=== PATIENT | female | born 1970 | race Caucasian/White ===

== ENCOUNTER 2018-02-15 02:46 | Inpatient (IN) | payer OTHER ==
[2018-02-15 04:02] LABS: ADD MAN DIFF? NO
[2018-02-15] MEDS: SODIUM CHLORIDE 0.9% 1L BAG IV* (04:06)
[2018-02-15 04:16] LABS: WHITE BLOOD COUNT 14.7 10^3/ul (4.8-10.8)
[2018-02-15 04:16] LABS: BASOPHILS % 0.2 % (0.0-2.0); HEMATOCRIT 46.1 % (37.0-47.0); HEMOGLOBIN 15.5 g/dl (12.0-16.0); LYMPHOCYTES # 2.2 10^3/ul (0.8-2.9); MEAN CORPUSCULAR HEMOGLOBIN 28.8 pg (29.0-33.0); MEAN CORPUSCULAR HGB CONC 33.6 g/dl (32.0-37.0); MEAN CORPUSCULAR VOLUME 85.5 fl (82.0-101.0); MEAN PLATELET VOLUME 9.7 fl (7.4-10.4); MONOCYTE # 0.9 10^3/ul (0.3-0.9); MONOCYTES % 5.9 % (0.0-11.0); NEUTROPHIL # 11.5 10^3/ul (1.6-7.5); NEUTROPHILS % 78.4 % (39.0-77.0); PLATELET COUNT 232 10^3/UL (140-415); RED BLOOD COUNT 5.39 10^6/ul (4.20-5.40); RED CELL DISTRIBUTION WIDTH 13.2 % (11.5-14.5)
[2018-02-15 04:32] LABS: ADD UMIC YES; UR ASCORBIC ACID NEGATIVE (NEGATIVE); UR BACTERIA FEW /HPF (NONE SEEN); UR BILIRUBIN (Dip) NEGATIVE (NEGATIVE); UR BLOOD (Dip) 2+ mg/dL (NEGATIVE); UR CLARITY SLIGHTLY CLOUDY (CLEAR); UR COLOR YELLOW (YELLOW); UR GLUCOSE (Dip) NEGATIVE (NEGATIVE); UR KETONES (Dip) 1+ mg/dL (NEGATIVE); UR LEUKOCYTE ESTERASE (Dip) TRACE Leu/ul (NEGATIVE); UR MUCUS FEW /HPF (NONE SEEN); UR NITRITE (Dip) NEGATIVE (NEGATIVE); UR RBC 16 /HPF (0-5); UR SPECIFIC GRAVITY (Dip) 1.015 (1.003-1.030); UR TOTAL PROTEIN (Dip) 2+ mg/dl (NEGATIVE); UR UROBILINOGEN (Dip) 1+ mg/dL (NEGATIVE); UR WBC 2 /HPF (0-5)
[2018-02-15 04:34] LABS: INR 0.93; PROTIME 12.6 Sec (11.9-14.9)
[2018-02-15 04:35] LABS: PARTIAL THROMBOPLASTIN TIME 26.7 Sec (25.0-35.0)
[2018-02-15 04:41] LABS: LACTIC ACID 1.7 mmol/L (0.5-2.0)
[2018-02-15 04:43] LABS: ALANINE AMINOTRANSFERASE 58 IU/L (13-69); ALBUMIN 4.3 g/dl (3.3-4.9); ALBUMIN/GLOBULIN RATIO 1.07; ALKALINE PHOSPHATASE 89 IU/L (42-121); ANION GAP 16 (8-16); ASPARTATE AMINO TRANSFERASE 45 IU/L (15-46); BARBITURATES Negative (NEGATIVE); BENZODIAZEPINES Negative (NEGATIVE); BILIRUBIN,INDIRECT 0.8 mg/dl (0-1.1); BILIRUBIN,TOTAL 0.8 mg/dl (0.2-1.3); BLOOD UREA NITROGEN 11 mg/dl (7-20); CALCIUM 8.8 mg/dl (8.4-10.2); CANNABINOIDS Positive (NEGATIVE); CARBON DIOXIDE 25 mmol/L (21-31); CHLORIDE 97 mmol/L (97-110); CREATININE 0.67 mg/dl (0.44-1.00); GLUCOSE 109 mg/dl (70-220); OPIATES Negative (NEGATIVE); POTASSIUM 4.1 mmol/L (3.5-5.1); SODIUM 134 mmol/L (135-144); TOTAL PROTEIN 8.3 g/dl (6.1-8.1)
[2018-02-15 04:54] LABS: TROPONIN-I 0.061 ng/ml (0.000-0.120)
[2018-02-15 04:56] LABS: AMPHETAMINE/METHAMPHETAMINE POSITIVE (NEGATIVE)
[2018-02-15 05:02] LABS: CREATINE KINASE 155 IU/L (23-200)
[2018-02-15 05:03] LABS: ACETAMINOPHEN < 10.0 ug/ml (10.0-30.0)
[2018-02-15 05:03] LABS: ETHANOL < 10.0 mg/dl; SALICYLATE < 1.0 mg/dl (5.0-30.0)
[2018-02-15 05:14] LABS: COCAINE Negative (NEGATIVE)
[2018-02-15] MEDS ORDERED: LORAZEPAM 2 MG INJ IV ×2 (05:30→15:30)
[2018-02-15] MEDS: IBUPROFEN 600 MG TAB PO (05:37)
[2018-02-15] MEDS: ACETAMINOPHEN 325 MG TAB PO (05:37)
[2018-02-15] MEDS: LORAZEPAM 2 MG INJ IM (05:53)
[2018-02-15] MEDS: HALOPERIDOL 5 MG INJ IM ×2 (06:49→11:22)
[2018-02-15] MEDS ORDERED: ACETAMINOPHEN 325 MG TAB PO (07:30)
[2018-02-15] MEDS ORDERED: ONDANSETRON 4 MG INJ IV (07:30)
[2018-02-15] MEDS ORDERED: NACL 0.9% 3 ML SYG IV (07:30)
[2018-02-15] MEDS: DIPHENHYDRAMINE 50 MG INJ IV (08:27)
[2018-02-15] MEDS: PIPER-TAZO 3.375 GM IV (PMX) 100 ML IVPB ×3 (08:29→21:33)
[2018-02-15] MEDS: SOD CHLORIDE 0.9% 1,000 ML IV ×3 (08:44→23:06)
[2018-02-15 09:01] LABS: LACTIC ACID 1.3 mmol/L (0.5-2.0)
[2018-02-15] MEDS: LORAZEPAM 2 MG INJ IV (09:49)
[2018-02-15] MEDS: LEVOFLOXACIN 500MG/D5W (PMX) 100 ML IVPB (10:10)
[2018-02-15 12:36] LABS: LACTIC ACID 1.4 mmol/L (0.5-2.0)
[2018-02-15 14:16] LABS: AADO2 Arterial 71.2 mmHg (7.0-24.0); Allen Test ACCEPTAB; Arterial Base Excess -0.8 mmol/L (-3.0-3); Arterial Blood Gas Oxygen Sat 97.7 mmHG (95.0-98.0); Arterial COHb 0.2 % (0.0-3.0); Arterial Fraction of Oxyhgb 97.4 % (93.0-99.0); Arterial HCO3 21.2 mmol/L (22.0-26.0); Arterial MetHb 0.1 % (0.0-1.5); Arterial Total Hemglobin 15.3 g/dl (12.0-18.0); Arterial pCO2 28.6 mmhg (35-45); MODE NASAL CANNULA; Site Left Radial
[2018-02-15] MEDS ORDERED: ACETAMINOPHEN 650 MG SUPP PR (14:51)
[2018-02-15] MEDS: ACETAMINOPHEN 650 MG SUPP PR (15:01)
[2018-02-15] MEDS ORDERED: VANCOMYCIN IV PER PHARMACY XX (15:30)
[2018-02-15] MEDS: VANCOMYCIN 1.75 GM in SOD CHLORIDE 0.9% 500 ML IVPB (17:36)
[2018-02-15] MEDS: hydrALAzine 20 MG INJ IV (18:57)
[2018-02-15] MEDS: LABETALOL HCL 20MG INJ IV (21:33)
[2018-02-16] MEDS: ACETAMINOPHEN 650 MG SUPP PR ×3 (00:46→13:20)
[2018-02-16] MEDS: hydrALAzine 20 MG INJ IV ×3 (04:10→20:47)
[2018-02-16] MEDS: VANCOMYCIN 1 GM in 250 ML IVPB ×2 (05:02→17:31)
[2018-02-16] MEDS: PIPER-TAZO 3.375 GM IV (PMX) 100 ML IVPB ×3 (06:14→21:56)
[2018-02-16] MEDS: SOD CHLORIDE 0.9% 1,000 ML IV ×2 (07:06→15:06)
[2018-02-16] MEDS: MULTIVITAMINS 10 ML, THIAMINE 100 MG, FOLIC ACID 1 MG in SOD CHLORIDE 0.9% 1,000 ML IVPB (08:42)
[2018-02-16 09:02] LABS: ADD MAN DIFF? NO
[2018-02-16 09:07] LABS: WHITE BLOOD COUNT 14.3 10^3/ul (4.8-10.8)
[2018-02-16 09:07] LABS: BASOPHIL # 0.1 10^3/ul (0.0-0.1); BASOPHILS % 0.4 % (0.0-2.0); HEMATOCRIT 42.8 % (37.0-47.0); HEMOGLOBIN 14.4 g/dl (12.0-16.0); LYMPHOCYTES # 1.8 10^3/ul (0.8-2.9); LYMPHOCYTES % 12.8 % (15.0-51.0); MEAN CORPUSCULAR HEMOGLOBIN 29.1 pg (29.0-33.0); MEAN CORPUSCULAR HGB CONC 33.6 g/dl (32.0-37.0); MEAN CORPUSCULAR VOLUME 86.6 fl (82.0-101.0); MEAN PLATELET VOLUME 9.8 fl (7.4-10.4); MONOCYTES % 7.1 % (0.0-11.0); NEUTROPHIL # 11.3 10^3/ul (1.6-7.5); NEUTROPHILS % 79.1 % (39.0-77.0); PLATELET COUNT 216 10^3/UL (140-415); RED BLOOD COUNT 4.94 10^6/ul (4.20-5.40); RED CELL DISTRIBUTION WIDTH 13.1 % (11.5-14.5)
[2018-02-16 09:35] LABS: CREATINE KINASE 531 IU/L (23-200)
[2018-02-16 09:48] LABS: CK INDEX 0.6; CK-MB 3.39 ng/ml (0.0-2.4); TROPONIN-I 0.034 ng/ml (0.000-0.120)
[2018-02-16 09:54] LABS: ALANINE AMINOTRANSFERASE 59 IU/L (13-69); ALBUMIN 3.5 g/dl (3.3-4.9); ALBUMIN/GLOBULIN RATIO 1.02; ALKALINE PHOSPHATASE 69 IU/L (42-121); ANION GAP 16 (8-16); ASPARTATE AMINO TRANSFERASE 61 IU/L (15-46); BILIRUBIN,INDIRECT 0.6 mg/dl (0-1.1); BILIRUBIN,TOTAL 0.6 mg/dl (0.2-1.3); BLOOD UREA NITROGEN 8 mg/dl (7-20); CALCIUM 8.9 mg/dl (8.4-10.2); CARBON DIOXIDE 25 mmol/L (21-31); CHLORIDE 101 mmol/L (97-110); CREATININE 0.59 mg/dl (0.44-1.00); GLUCOSE 88 mg/dl (70-220); MAGNESIUM 1.8 mg/dl (1.7-2.5); POTASSIUM 3.6 mmol/L (3.5-5.1); SODIUM 138 mmol/L (135-144); TOTAL PROTEIN 6.9 g/dl (6.1-8.1)
[2018-02-16 10:06] LABS: HEPATITIS B SURFACE ANTIGEN NEGATIVE (NEGATIVE)
[2018-02-16 10:23] LABS: HEPATITIS C VIRAL ANTIBODY REACTIVE (NEGATIVE)
[2018-02-17] MEDS: SOD CHLORIDE 0.9% 1,000 ML IV ×2 (00:03→07:02)
[2018-02-17] MEDS: ACETAMINOPHEN 650 MG SUPP PR (00:07)
[2018-02-17 04:15] LABS: ADD MAN DIFF? NO
[2018-02-17 04:17] LABS: WHITE BLOOD COUNT 13.6 10^3/ul (4.8-10.8)
[2018-02-17 04:17] LABS: BASOPHIL # 0.1 10^3/ul (0.0-0.1); BASOPHILS % 0.4 % (0.0-2.0); EOSINOPHILS % 0.1 % (0.0-7.0); HEMATOCRIT 41.7 % (37.0-47.0); HEMOGLOBIN 13.6 g/dl (12.0-16.0); LYMPHOCYTES # 1.8 10^3/ul (0.8-2.9); MEAN CORPUSCULAR HEMOGLOBIN 28.5 pg (29.0-33.0); MEAN CORPUSCULAR HGB CONC 32.6 g/dl (32.0-37.0); MEAN CORPUSCULAR VOLUME 87.4 fl (82.0-101.0); MEAN PLATELET VOLUME 9.4 fl (7.4-10.4); MONOCYTES % 7.1 % (0.0-11.0); NEUTROPHIL # 10.7 10^3/ul (1.6-7.5); NEUTROPHILS % 78.4 % (39.0-77.0); PLATELET COUNT 218 10^3/UL (140-415); RED BLOOD COUNT 4.77 10^6/ul (4.20-5.40); RED CELL DISTRIBUTION WIDTH 13.2 % (11.5-14.5)
[2018-02-17 04:42] LABS: ANION GAP 14 (8-16); BLOOD UREA NITROGEN 9 mg/dl (7-20); CALCIUM 8.5 mg/dl (8.4-10.2); CARBON DIOXIDE 22 mmol/L (21-31); CHLORIDE 106 mmol/L (97-110); CREATININE 0.49 mg/dl (0.44-1.00); GLUCOSE 80 mg/dl (70-220); MAGNESIUM 1.9 mg/dl (1.7-2.5); PHOSPHORUS 3.1 mg/dl (2.5-4.9); POTASSIUM 3.4 mmol/L (3.5-5.1); SODIUM 139 mmol/L (135-144)
[2018-02-17 04:46] LABS: VANCOMYCIN,TROUGH 5.3 ug/ml (10.0-20.0)
[2018-02-17] MEDS: VANCOMYCIN 1 GM in 250 ML IVPB ×3 (05:04→20:45)
[2018-02-17] MEDS: hydrALAzine 20 MG INJ IV ×2 (05:09→15:52)
[2018-02-17] MEDS: PIPER-TAZO 3.375 GM IV (PMX) 100 ML IVPB ×3 (07:02→22:00)
[2018-02-17] MEDS: POTASSIUM CHLORIDE 100 ML IVPB (07:49)
[2018-02-17] MEDS: MULTIVITAMINS 10 ML, THIAMINE 100 MG, FOLIC ACID 1 MG in SOD CHLORIDE 0.9% 1,000 ML IVPB (11:14)
[2018-02-17] MEDS ORDERED: LORAZEPAM 0.5 MG TAB PO (12:36)
[2018-02-18] MEDS: PIPER-TAZO 3.375 GM IV (PMX) 100 ML IVPB ×2 (05:36→13:14)
[2018-02-18] MEDS: VANCOMYCIN 1 GM in 250 ML IVPB ×2 (05:36→13:49)
[2018-02-18] MEDS: METOPROLOL 25 MG TAB PO ×2 (08:33→21:57)
[2018-02-18] MEDS: MULTIVITAMINS 10 ML, THIAMINE 100 MG, FOLIC ACID 1 MG in SOD CHLORIDE 0.9% 1,000 ML IVPB (09:12)
[2018-02-18 13:01] LABS: VANCOMYCIN,TROUGH 10.5 ug/ml (10.0-20.0)
[2018-02-19] MEDS: hydrALAzine 20 MG INJ IV ×2 (05:37→15:50)
[2018-02-19] MEDS: METOPROLOL 25 MG TAB PO (08:51)
== END 2018-02-19 18:24 | disposition home or self-care (01) | DRG 917 ==
LOC: ICU 05:31 → TEL 02-17 12:01 → E/R 02:46
PROC: 4A033R1 Measurement of Arterial Saturation, Peripheral, Percutaneous Approach (ICD-10-PCS; principal; 2018-02-15)
DX: T43.621A Poisoning by amphetamines, accidental (unintentional), initial encounter (principal); G92 Toxic encephalopathy; N39.0 Urinary tract infection, site not specified; R65.10 Systemic inflammatory response syndrome (SIRS) of non-infectious origin without acute organ dysfunction; E87.1 Hypo-osmolality and hyponatremia; F15.122 Other stimulant abuse with intoxication with perceptual disturbance; F12.122 Cannabis abuse with intoxication with perceptual disturbance; Z59.0 Homelessness; I10 Essential (primary) hypertension; B18.2 Chronic viral hepatitis C; I16.0 Hypertensive urgency; Z91.14 Patient's other noncompliance with medication regimen; Y92.414 Local residential or business street as the place of occurrence of the external cause
CPT/HCPCS: 36415; 36600; 71045; 80048; 80053; 80202; 80307; 81001; 82550; 82553; 82803; 82962; 83605; 83735; 84100; 84443; 84484; 84703; 85025; 85610; 85730; 86803; 87040; 87081; 87086; 87340; 92610; 93005; 96360; 97110; 97116; 97161; 97530; 99285-25